=== PATIENT | male | born 1950 | race Caucasian/White ===

== ENCOUNTER 2022-07-13 16:49 | Emergency (ER) | payer MEDICARE ==
[2022-07-13 17:45] LABS: TROPONIN I HIGH SENSITIVITY 21.4 pg/mL (<=60.3)
[2022-07-13 18:34] LABS: CORONAVIRUS COVID-19 NAA NEGATIVE (NEGATIVE)
== END 2022-07-13 18:40 ==
LOC: JP.ED 16:49
DX: I26.99 Other pulmonary embolism without acute cor pulmonale (principal); J90 Pleural effusion, not elsewhere classified; R09.02 Hypoxemia; I47.20 Ventricular tachycardia, unspecified; I50.9 Heart failure, unspecified; I48.91 Unspecified atrial fibrillation; Z95.0 Presence of cardiac pacemaker
CPT/HCPCS: 0241U; 36415; 80048; 83880; 84484; 85025; 93005; 93010; 99284; 99285